=== PATIENT | female | born 1995 | race Caucasian/White ===

== ENCOUNTER 2016-09-22 19:42 | Emergency (ER) | payer OTHER ==
[2016-09-22 20:32] VITALS: BP 147/93; PULSE 59; RESP 14; TEMP 98.2; O2SAT 97
--- NOTE | 2016-09-22 20:33 | UCPHY ---
H & P Time Seen by Provider: 09/22/16 20:11 Patient Type: New HPI/ROS: HPI Concerned about frostbite to left big toe. 21-year-old female by private vehicle with her boyfriend. They were skiing up at [place] this last Thursday. He was very cold. She has old boots. Her left big toe has been more red than usual and she has some pain underneath the nail and on the tip of the toe. She is not sure if her boot was rubbing her nail in a way that caused an injury or inflammation. She is concerned about a frostbite injury as well. ROS: Constitutional: No fever, no chills. No weakness. Musculoskeletal: As above Skin: No rashes. Neurological: No focal weakness or altered sensation. Past medical history: No significant past medical history. Social history: Here with her boyfriend. Nonsmoker. Physical Exam: General Appearance: Alert, no distress. This patient is responding to questions appropriately and in full sentences. This patient appears well- hydrated and well-nourished. Eyes: Pupils equal and round no pallor or injection. No lid edema, erythema or injection. Left foot and left big toe exam: The left big toe has normal capillary refill and normal color. There is no blistering, gangrenous, white or insensate tissue. She does have what appears to be an early small subungual hematoma under the proximal medial aspect of the nail bed was some tenderness on palpation to this area. The left toe is otherwise neurovascularly intact. Neurological: Motor sensory function is grossly intact. Cranial nerves are normal. Gait is normal. Skin: Warm and dry, no rashes. Musculoskeletal: Neck is supple and nontender. Extremities are symmetrical. All joints range without pain or impingement. Psychiatric: No agitation. No depression. Database: EKG: Imaging: Procedures: Emergency department course: After my evaluation, I discussed high-dose ibuprofen for 3 days. She will follow up with the primary care physician for re-evaluation in 2 days. Return to Urgent Care precautions were discussed with her. She feels comfortable going home and I feel she is safe for discharge. All of her questions were answered. She was discharged in good condition. Differential Diagnosis: The differential diagnosis on this patient includes but is not limited to friction injury to big toe, subungual hematoma, mild frostbite. Fracture, cellulitis, osteomyelitis unlikely. This represents a partial list of diagnoses considered. These considerations are based on history, physical exam , past history, reassessment and diagnostic testing. Departure - Departure Disposition: Home, Routine, Self-Care Clinical Impression: Left big tone pain Condition: Good Instructions: Frostbite (ED) Additional Instructions: Read and follow provided instructions. Follow-up with your primary care physician or 1 that I have provided you with in 2 days for re-evaluation. Ibuprofen dosin mg every 6 hours with meals for the next 3 days only. Return to the emergency department for worsening pain, discoloration, swelling, fever or other serious concerns. Referrals: [facility] [Outside] - As per Instructions - PQRS PQRS Measurement: Not applicable.
[2016-09-22] MEDS ORDERED: IBUPROFEN 200 MG TAB PO ONE (20:52)
== END 2016-09-22 20:50 | disposition home or self-care (01) ==
LOC: CED 19:42
DX: M79.675 Pain in left toe(s) (principal)
CPT/HCPCS: 99203-PO; G0463-PO